=== PATIENT | female | born 1930 | race Caucasian/White ===

== ENCOUNTER 2016-10-07 13:48 | Observation (INO) | payer MEDICARE, BC ==
[2016-10-07] MEDS ORDERED: NITROGLYCERIN SL TABS 0.4 MG TAB SUBLINGUAL PRN (14:07)
[2016-10-07] MEDS ORDERED: ASPIRIN 81 MG CHEW PO STA (14:07)
[2016-10-07] MEDS ORDERED: HEPARIN SODIUM,PORCINE 5,000 UNIT/ML 1 ML VIAL IV PRN (14:07)
[2016-10-07] MEDS ORDERED: HEPARIN SODIUM,PORCINE/D5W PMX 25,000 UNIT in DEXTROSE/WATER 1 500ML.BAG IV SCH (14:15)
--- NOTE | 2016-10-07 14:40 | ED ---
General Adult HPI - General Chief complaint: Dizziness Stated complaint: cardiac changes Time Seen by Provider: 10/07/16 13:51 Source: patient, EMS, RN notes reviewed, old records reviewed Mode of arrival: EMS Limitations: no limitations - History of Present Illness Initial comments: This is an 86-year-old female ER for evaluation of chest pain. Patient has history of cardiac risk also has UTI. Patient's transfer patient except for [facility] for evaluation by cardiology. Patient still with mild chest pain at this time. Patient denies travel history, no shortness of breath no cough or congestion. - Related Data Home Medications Medication Instructions Recorded Confirmed Brinzolamide/Brimonidine Tart 1 drop BOTH EYES BID 10/07/16 10/07/16 [Simbrinza 1%-0.2% Eye Drops] Calcium Carbonate/Vitamin D3 1 tab PO DAILY@119910/07/16 10/07/16 [Calcium 600-Vit D3 200 Tablet] Digoxin [Lanoxin] 125 mcg PO DAILY 10/07/16 10/07/16 Hydrochlorothiazide [Hydrodiuril] 25 mg PO HS 10/07/16 10/07/16 Latanoprost [Xalatan 0.005%] 1 drop BOTH EYES HS 10/07/16 10/07/16 Levothyroxine Sodium [Synthroid] 25 mcg PO HS 10/07/16 10/07/16 Metoprolol Succinate [Toprol XL] 50 mg PO HS 10/07/16 10/07/16 Multivit-Min/FA/Lycopen/Lutein 1 tab PO DAILY@1200 10/07/16 10/07/16 [Centrum Silver Tablet] [place]-3 Fatty Acids/Fish Oil [Fish 1 cap PO DAILY@119910/07/16 10/07/16 Oil 1,000 mg Capsule] Rivaroxaban [Xarelto] 20 mg PO DAILY 10/07/16 10/07/16 Simvastatin [Simvastatin] 20 mg PO HS 10/07/16 10/07/16 Timolol 0.5% Ophth Soln [Timoptic 1 drop BOTH EYES BID 10/07/16 10/07/16 0.5% Ophth Soln] amLODIPine [Norvasc] 10 mg PO HS 10/07/16 10/07/16 carBAMazepine [carBAMazepine] 200 mg PO BID 10/07/16 10/07/16 Allergies Allergy/AdvReac Type Severity Reaction Status Date / Time No Known Allergies Allergy Verified 10/07/16 14:14 Review of Systems ROS Statement: Those systems with pertinent positive or pertinent negative responses have been documented in the HPI. ROS Other: All systems not noted in ROS Statement are negative. Past Medical History Past Medical History: Atrial Fibrillation, Hyperlipidemia, Hypertension Additional Past Medical History / Comment(s): trigeminal neuralgia History of Any Multi-Drug Resistant Organisms: None Reported Past Surgical History: Hysterectomy, Orthopedic Surgery Additional Past Surgical History / Comment(s): rib resection Past Psychological History: No Psychological Hx Reported Smoking Status: Never smoker Past Alcohol Use History: None Reported Past Drug Use History: None Reported General Exam Limitations: no limitations General appearance: alert, in no apparent distress Head exam: Present: atraumatic, normocephalic, normal inspection Eye exam: Present: normal appearance, PERRL, EOMI. Absent: scleral icterus, conjunctival injection, periorbital swelling ENT exam: Present: normal exam, mucous membranes moist Neck exam: Present: normal inspection. Absent: tenderness, meningismus, lymphadenopathy Respiratory exam: Present: normal lung sounds bilaterally. Absent: respiratory distress, wheezes, rales, rhonchi, stridor Cardiovascular Exam: Present: regular rate, normal rhythm, normal heart sounds. Absent: systolic murmur, diastolic murmur, rubs, gallop, clicks GI/Abdominal exam: Present: soft, normal bowel sounds. Absent: distended, tenderness, guarding, rebound, rigid Extremities exam: Present: normal inspection, full ROM, normal capillary refill. Absent: tenderness, pedal edema, joint swelling, calf tenderness Back exam: Present: normal inspection Neurological exam: Present: alert, oriented X3, CN II-XII intact Psychiatric exam: Present: normal affect, normal mood Skin exam: Present: warm, dry, intact, normal color. Absent: rash Course Vital Signs 10/07/16 13:53 Temperature 97.4 F L Pulse Rate 60 Respiratory 18 Rate Blood Pressure 159/73 O2 Sat by Pulse 99 Oximetry - Reevaluation(s) Reevaluation #1: 10/07/16 14:39 Patient this time is still with chest pain, transfer records are fully reviewed including troponin prior EKG EKG Findings - EKG Comments: EKG Findings:: EKG shows sinus rhythm rate of 61, pO2 42, QRS 100, QTC 436 Medical Decision Making - Medical Decision Making 6 female ER with A. fib high blood pressure high cholesterol, patient coming in a stretcher patient cardiac observation. EKG is negative, troponin was negative and patient be admitted, patient also noted to have urinary tract infection Critical Care Time Critical Care Time: Yes Total Critical Care Time: 31 Disposition Clinical Impression: Chest pain, UTI (urinary tract infection) Disposition: ADMITTED IP TO THIS HOSP Condition: Undetermined Referrals: Jeramy Alexandra MD [Primary Care Provider] - 1-2 days
[2016-10-07] MEDS: SODIUM CHLORIDE 0.9% 1,000 ML IV SCH (14:42)
[2016-10-07 17:35] LABS: Creatine Kinase MB 0.8 ng/mL (0.0-2.4); Troponin I 0.017 ng/mL (0.000-0.034)
[2016-10-07] MEDS ORDERED: amLODIPine 10 MG TAB PO SCH (21:00)
[2016-10-07] MEDS ORDERED: HYDROCHLOROTHIAZIDE 25 MG TAB PO SCH (21:00)
[2016-10-07] MEDS ORDERED: LEVOTHYROXINE 25 MCG TAB PO SCH (21:00)
[2016-10-07] MEDS: DORZOLAMIDE HCL 2% DROPS 10 ML BTL BOTH EYES SCH (22:07)
[2016-10-07] MEDS: LATANOPROST 0.005% OPHTH DROPS 2.5 ML BTL BOTH EYES SCH (22:08)
[2016-10-07] MEDS: BRIMONIDINE TARTRATE 0.2% DROPS 5 ML BTL BOTH EYES SCH (22:08)
[2016-10-07] MEDS: TIMOLOL 0.5% OPHTH DROPS 5 ML BTL BOTH EYES SCH (22:09)
[2016-10-07] MEDS: METOPROLOL SUCCINATE (ER) 50 MG TAB.ER.24H PO SCH (22:11)
[2016-10-07] MEDS: ATORVASTATIN 10 MG TAB PO SCH (22:11)
[2016-10-07] MEDS: carBAMazepine 200 MG TAB PO SCH (22:17)
[2016-10-07 23:33] LABS: Creatine Kinase MB 0.8 ng/mL (0.0-2.4); Troponin I 0.015 ng/mL (0.000-0.034)
[2016-10-08 03:24] LABS: Hemoglobin A1C 5.3 % (4.2-6.1)
[2016-10-08 07:09] LABS: Basophils % (A) 1 %; CH 32.6; CHCM 35.1; Eosinophils # (A) 0.1 k/uL (0-0.7); Eosinophils % (A) 4 %; HDW 2.49; HGB 13.4 gm/dL (11.4-16.0); Luc # (Auto) 0.11; Luc % (Auto) 3; Lymphocytes # (A) 0.8 k/uL (1.0-4.8); Lymphocytes % (A) 23 %; MCH 32.2 pg (25.0-35.0); MCHC 34.4 g/dL (31.0-37.0); MCV 93.4 fL (80.0-100.0); Mean Platelet Volume 6.7; Monocytes # (A) 0.3 k/uL (0-1.0); Monocytes % (A) 10 %; Neutrophils % (A) 59 %; RBC 4.18 m/uL (3.80-5.40); RDW 12.4 % (11.5-15.5); WBC 3.4 k/uL (3.8-10.6); WBC (Perox) 3.39
--- NOTE | 2016-10-08 07:25 | HP ---
DATE OF ADMISSION: CHIEF COMPLAINT: An 86-year-old female who was admitted with dizziness with a cardiac risk. She has a history of UTI. She transferred from ( ) for evaluation by good automotive project engineer due to chest pain, similar to atrial fibrillation and chest pain she has had 3 to 4 to 5 years ago. She denies any travel history. No shortness of breath, cough or congestion. D-dimer was ordered, which was negative. HOME MEDICATIONS: 1. Simbrinza. 2. Calcium carbonate. 3. Lanoxin. 4. HydroDIURIL. 5. Xalatan. 6. Synthroid. 7. Toprol XL. 8. Xarelto 20 mg a day. 9. Simvastatin 20 mg a day. 10. Amlodipine 10 mg daily. 11. Carbamazepine 200 mg b.i.d. ALLERGIES: Negative. REVIEW OF SYSTEMS: Fourteen-point review of systems negative except as mentioned in HPI. SOCIAL HISTORY: Lives by herself. She is an ex-nurse for 30 years. Does not smoke or drink alcohol or take illicit drugs. She has a history of atrial fibrillation, dyslipidemia, hypertension, trigeminal neuralgia. She has had a hysterectomy, orthopedic surgery, ribs resection. No smoking, alcohol or illicit drugs. Vital signs stable, afebrile. CARDIOVASCULAR: S1, S2. LUNGS: Clear. GI: Soft. HEMATOLOGIC: Negative Homans. VASCULAR: Normal dorsalis pedis, posterior tibial and radial pulse. OPHTHALMOLOGIC: Pupils equal, round and react to light and accommodation. NEUROLOGIC: Alert and oriented x3. PSYCHIATRIC: Fair mood and affect. NEUROLOGIC: Alert and oriented x3. Temperature 97.4, pulse is 60 to 65, respiratory rate 16 to 18, blood pressure 150s over 70s. O2 99% on room air. ASSESSMENT: 1. Chest pain. 2. Urinary tract infection. 3. Atrial fibrillation. 4. Hypertension. 5. Dyslipidemia. 6. Rule out myocardial infarction. Treat UTI with IV Rocephin. Please see further orders.
[2016-10-08 07:30] LABS: ALT 21 U/L (9-52); AST 20 U/L (14-36); Alkaline Phosphatase 77 U/L (38-126); Anion Gap 8 mmol/L; Blood Urea Nitrogen 9 mg/dL (7-17); Calcium 8.5 mg/dL (8.4-10.2); Carbon Dioxide 27 mmol/L (22-30); Chloride 103 mmol/L (98-107); Cholesterol 150 mg/dL (<200); Glucose 91 mg/dL (74-99); HDL Cholesterol 57 mg/dL (40-60); Non-African American GFR(MDRD) >60 (>60 ml/min/1.73 sqM); Potassium 4.1 mmol/L (3.5-5.1); Sodium 138 mmol/L (137-145); Total Bilirubin 0.6 mg/dL (0.2-1.3); Total Protein 6.2 g/dL (6.3-8.2); Triglycerides 127 mg/dL (<150)
[2016-10-08] MEDS ORDERED: RIVAROXABAN 10 MG TAB PO SCH (07:30)
[2016-10-08] MEDS ORDERED: ASPIRIN 325 MG TAB PO SCH (09:00)
[2016-10-08] MEDS ORDERED: ATORVASTATIN 80 MG TAB PO SCH (09:00)
[2016-10-08] MEDS ORDERED: REGADENOSON 0.4 MG/5 ML SYRINGE IV ONE (09:25)
[2016-10-08] MEDS ORDERED: AMINOPHYLLINE 500 MG/20 ML VIAL IV PRN (09:25)
[2016-10-08] MEDS ORDERED: ASPIRIN 81 MG CHEW PO SCH (09:40)
--- NOTE | 2016-10-08 11:26 | ECHOF ---
Referral Reason:afib MEASUREMENTS -------- HEIGHT: 170.2 cm WEIGHT: 67.6 kg BP: 128/74 RVIDd: 3.0 cm (< 3.3) IVSd: 1.0 cm (0.6 - 1.1) LVIDd: 3.9 cm (3.9 - 5.3) LVPWd: 1.1 cm (0.6 - 1.1) IVSs: 1.6 cm LVIDs: 2.4 cm LVPWs: 1.6 cm LA Diam: 3.2 cm (2.7 - 3.8) LAESV Index (A-L): 26.35 ml/m Ao Diam: 3.3 cm (2.0 - 3.7) AV Cusp: 2.6 cm (1.5 - 2.6) MV EXCURSION: 15.488 mm (> 18.000) MV EF SLOPE: 49 mm/s (70 - 150) EPSS: 0.5 cm MV E Julio: 0.98 m/s MV DecT: 194 ms MV A Julio: 0.67 m/s MV E/A Ratio: 1.46 RAP: 5.00 mmHg RVSP: 26.24 mmHg FINDINGS -------- Sinus rhythm. This was a technically good study. The left ventricular size is normal. Left ventricular wall thickness is normal. Overall left ventricular systolic function is normal with, an EF between 60 - 65 %. The diastolic filling pattern is normal for the age of the patient 19.55. The right ventricle is normal in size and function. Normal LA size by volume 22+/-6 ml/m2. The right atrium is normal in size. The aortic valve is trileaflet, and appears structurally normal. No aortic stenosis or regurgitation. Trace amount of aortic regurgitation. [id number] mitral regurgitation is present. Mild tricuspid regurgitation present. Right ventricular systolic pressure is normal at < 35 mmHg. The pulmonic valve was not well visualized. The aortic root size is normal. Normal inferior vena cava with normal inspiratory collapse consistent with estimated right atrial pressure of 5 mmHg. The pericardium is normal. CONCLUSIONS -------- 1. Sinus rhythm. 2. The aortic valve is trileaflet, and appears structurally normal. No aortic stenosis or regurgitation. 3. Trace amount of aortic regurgitation. 4. Yvkg-[id number] mitral regurgitation is present. 5. Mild tricuspid regurgitation present. 6. Right ventricular systolic pressure is normal at < 35 mmHg. 7. The pulmonic valve was not well visualized. 8. The aortic root size is normal. 9. Normal inferior vena cava with normal inspiratory collapse consistent with estimated right atrial pressure of 5 mmHg. 10. The pericardium is normal. 11. This was a technically good study. 12. The left ventricular size is normal. 13. Left ventricular wall thickness is normal. 14. Overall left ventricular systolic function is normal with, an EF between 60 - 65 %. 15. The diastolic filling pattern is normal for the age of the patient 19.55 16. The right ventricle is normal in size and function. 17. Normal LA size by volume 22+/-6 ml/m2. 18. The right atrium is normal in size. RATE MANAGER: Letha Teresa RDCS
--- NOTE | 2016-10-08 12:43 | EST ---
DATE OF SERVICE: 10/08/2016 AGE: 86Y SEX: F HT: 5'7" WT: 152 lbs. Protocol Isiah: Other: Lexiscan Cardiolite Stage: Dur. of Exercise: *Heart Rate Blood Pressure *Rest: 57 Rest: 170/58 * *Max. Achieved: 95 Maximum BP: 195/79 85% PMHR: 100% PMHR: *METS: INDICATIONS: Chest pain. MEDICATIONS: Patient was given Lexiscan injection over the period of 15 seconds. Peak heart rate of 95 was achieved. Maximum blood pressure of 195/79 mmHg was noted. Resting EKG shows normal sinus rhythm with normal DE interval and QRS duration and normal ST-T waves. No ST segment depression suggestive of ischemia is noted. The results of the nuclear study will follow.
[2016-10-08] MEDS: HYDROCHLOROTHIAZIDE 25 MG TAB PO SCH (14:04)
[2016-10-08] MEDS: LEVOTHYROXINE 25 MCG TAB PO SCH ×2 (14:04→14:08)
[2016-10-08] MEDS: amLODIPine 10 MG TAB PO SCH (14:04)
[2016-10-08] MEDS: carBAMazepine 200 MG TAB PO SCH ×2 (14:04→20:23)
[2016-10-08] MEDS: DIGOXIN 125 MCG TAB PO SCH (14:04)
[2016-10-08] MEDS: TIMOLOL 0.5% OPHTH DROPS 5 ML BTL BOTH EYES SCH ×2 (14:05→20:22)
[2016-10-08] MEDS: DORZOLAMIDE HCL 2% DROPS 10 ML BTL BOTH EYES SCH ×2 (14:06→20:24)
[2016-10-08] MEDS: SODIUM CHLORIDE 0.9% 1,000 ML IV SCH (14:07)
[2016-10-08] MEDS: BRIMONIDINE TARTRATE 0.2% DROPS 5 ML BTL BOTH EYES SCH ×2 (14:07→20:24)
--- NOTE | 2016-10-08 15:13 | CONS ---
DATE OF CONSULTATION: Mrs. Grant is an 86-year-old female who was transferred from [facility] for evaluation. Patient has been followed by Dr. Amato on a regular basis. History of paroxysmal atrial fibrillation diagnosed about 3 years ago who has been in sinus mechanism, anticoagulated and has done reasonably well from the cardiac standpoint. Has no history of obstructive coronary artery disease. Yesterday had frequency and has been waking up every hour on the hour to go to the bathroom. Went to the emergency room with feeling fatigued, tired and dyspneic. She has a baseline dyspnea, slightly worse and she was feeling mildly dizzy. In the emergency room, she had no chest discomfort. Her EKG shows sinus mechanism. There was transient T wave inversion laterally but not associated with any other symptoms. She has undergone stress test in the past that revealed no evidence of inducible ischemia. She had some palpitation 2 days ago, but no documented recurrent atrial fibrillation. She has no clear PND, orthopnea. No peripheral edema. She tries to walk on a daily basis using her cane, but she gets dyspneic. Her coronary risk factors are positive for hypertension and hyperlipidemia. She is nondiabetic, nonsmoker. Her medications include: Fish oil, vitamin, calcium, eyedrops Xalatan, Lanoxin 0.125 mg daily, Norvasc 10 mg daily, HydroDIURIL 20 mg daily, simvastatin 20 mg daily, carbamazepine, Xarelto 20 mg daily, Toprol-XL 50 mg daily and Synthroid 0.025 mg daily. REVIEW OF SYSTEMS: RESPIRATORY SYSTEM: She has no recent wheezing. No cough. She has chronic dyspnea. GI: No recent GI bleeding. No peptic ulcer disease. SYSTEM: She has frequency, but no hematuria. NERVOUS SYSTEM: No history of seizure. PHYSICAL EXAMINATION: An 86-year-old female, alert, oriented, in no apparent distress. Blood pressure 128/70 with a heart in the 50s. HEAD: Normocephalic. EYES: Sclerae anicteric. NECK: Good upstroke. No bruit. No jugular venous distention. LUNGS: Clear to auscultation. HEART: Regular rate and rhythm. S1, S2, no S3, with systolic murmur heard at the base. No diastolic murmur. No rub. ABDOMEN: Soft, nontender, positive bowel sounds. No organomegaly. EXTREMITIES: No edema. Intact distal pulses. LAB DATA: EKG sinus mechanism, first-degree AV block with nonspecific ST-T wave changes. On the EKG [place] there was transient T wave inversion in the lateral precordial leads. Troponin 0.017 and 0.015. BUN and creatinine 9 and 0.63. Hemoglobin 13.4. IMPRESSION: 1. Transient EKG changes of unclear etiology not associated with any symptoms and with normal troponins. 2. Paroxysmal atrial fibrillation, remains in sinus mechanism. 3. History of hypertension. 4. Hyperlipidemia. 5. Probable urinary tract infection. RECOMMENDATIONS: From the cardiac standpoint, I will hold her Xarelto at this time. I will proceed with an echocardiogram and a myocardial perfusion imaging. If there is no evidence of inducible ischemia, then no further cardiac work-up will be needed. I will restart the patient on Xarelto at 15 mg a day and stop her aspirin at that time. On the other hand if there is abnormal myocardial perfusion imaging then she would require coronary angiography. I have discussed those findings and recommendations with the patient and she in full understanding and agreement. Thank you for this consult. We will follow with you.
--- NOTE | 2016-10-08 16:05 | NM ---
EXAMINATION TYPE: NM stress Lexiscan cardiolite DATE OF EXAM: 10/08/2016 COMPARISON: NONE HISTORY: Chest pain TECHNIQUE: After the intravenous administration of 11.0 mCi Tc 99m Sestamibi - Cardiolite resting SP ECT images acquired 45 minutes post injection. The patient received 0.4mg Lexiscan, 27.5 mCi Tc 99m Sestamibi - Stress images obtained [address] injection FINDINGS: There is good uptake of radiopharmaceutical by the left ventricle without fixed defect. The re is no convincing inducible ischemic change. Wall motion is normal and ejection fraction is 62%. IMPRESSION: NORMAL NUCLEAR MEDICINE STRESS MYOCARDIAL SPECT.
[2016-10-08] MEDS: LATANOPROST 0.005% OPHTH DROPS 2.5 ML BTL BOTH EYES SCH (20:23)
[2016-10-08] MEDS: ATORVASTATIN 10 MG TAB PO SCH (20:23)
[2016-10-08] MEDS: METOPROLOL SUCCINATE (ER) 50 MG TAB.ER.24H PO SCH (20:24)
[2016-10-09 07:20] LABS: Mean Platelet Volume 6.6
[2016-10-09 08:07] VITALS: RESP 14
[2016-10-09] MEDS: SODIUM CHLORIDE 0.9% 1,000 ML IV SCH (08:47)
[2016-10-09] MEDS: DIGOXIN 125 MCG TAB PO SCH (09:06)
[2016-10-09] MEDS: HYDROCHLOROTHIAZIDE 25 MG TAB PO SCH (09:06)
[2016-10-09] MEDS: LEVOTHYROXINE 25 MCG TAB PO SCH (09:06)
[2016-10-09] MEDS: amLODIPine 10 MG TAB PO SCH (09:07)
[2016-10-09] MEDS: carBAMazepine 200 MG TAB PO SCH (09:07)
[2016-10-09] MEDS: TIMOLOL 0.5% OPHTH DROPS 5 ML BTL BOTH EYES SCH (09:11)
[2016-10-09] MEDS: DORZOLAMIDE HCL 2% DROPS 10 ML BTL BOTH EYES SCH (09:12)
[2016-10-09] MEDS: BRIMONIDINE TARTRATE 0.2% DROPS 5 ML BTL BOTH EYES SCH (09:12)
--- NOTE | 2016-10-09 10:49 | P.DS ---
Providers Date of admission: 10/07/16 14:07 Expected date of discharge: 10/09/16 Attending physician: Ismael Varma Consults: 10/07/16 14:07 Consult Physician Urgent Consulting Provider: Michelle Rg Consult Reason/Comments: cp Do you want consulting provider notified?: Yes Primary care physician: [facility] Course: [id number] female who was transferred from [facility] for chest pain. He is primary beverage manager Dr. Lee which she sees on a regular basis. Patient has a history of paroxysmal atrial fibrillation diagnosed about 3 years ago. Has maintained sinus rhythm. Has been on anticoagulation Xarelto and had been doing fairly well up until the current event. Patient went into the emergency room stated that she felt tired fatigued and short of breath. Patient does have baseline shortness of breath but she felt that this was different. The 12-lead EKG showed sinus rhythm. There were transient T-wave inversions noted laterally. Patient had undergone a stress test in the past that showed no evidence of inducible ischemia. Patient had some heart palpitations a couple days ago. Given the above clinical presentation cardiology recommended the patient undergo a Lexiscan stress test the Lexiscan stress test was negative no acute findings. Additionally patient stated that when she was seen in [facility] they did collect a urine and she was told she had a urinary tract infection started on antibiotic Rocephin has received a couple doses. Patient denies any burning on urination frequency urgency. Patient remained pain-free and from cardiology perspective the patient to be discharged home echocardiogram obtained on October 08 showed an EF between 60 and 65% Impression discharge diagnosis Present on admission chest pain atypical features no evidence of acute coronary syndrome Paroxysmal atrial fibrillation current maintain sinus rhythm hypertension with hypertensive heart disease Echocardiogram October 08 EF 60-65% normal findings Lexiscan done October 08 negative study Present on admission urinary tract infection not ruled out Present on admission transit EKG changes of unclear etiology not associated with any symptoms and with normal troponins The above dictated assessment and findings were discussed with dr Avani Hernandez and the plan of care have been dictated as directed. Cecilia Knight nurse practitioner acting as a scribe for Dr. Varma Patient Condition at Discharge: Undetermined Plan - Discharge Summary New Discharge Prescriptions: New Levofloxacin [Levaquin] 500 mg PO DAILY #5 tab Continue [place]-3 Fatty Acids/Fish Oil [Fish Oil 1,000 mg Capsule] 1 cap PO DAILY@1200 Multivit-Min/FA/Lycopen/Lutein [Centrum Silver Tablet] 1 tab PO DAILY@1200 Timolol 0.5% Ophth Soln [Timoptic 0.5% Ophth Soln] 1 drop BOTH EYES BID Latanoprost [Xalatan 0.005%] 1 drop BOTH EYES HS Digoxin [Lanoxin] 125 mcg PO DAILY Brinzolamide/Brimonidine Tart [Simbrinza 1%-0.2% Eye Drops] 1 drop BOTH EYES BID amLODIPine [Norvasc] 10 mg PO HS Hydrochlorothiazide [Hydrodiuril] 25 mg PO HS carBAMazepine 200 mg PO BID Simvastatin 20 mg PO HS Rivaroxaban [Xarelto] 20 mg PO DAILY Metoprolol Succinate [Toprol XL] 50 mg PO HS Levothyroxine Sodium [Synthroid] 25 mcg PO HS Calcium Carbonate/Vitamin D3 [Calcium 600-Vit D3 200 Tablet] 1 tab PO DAILY@ 1200 Discharge Medication List Brinzolamide/Brimonidine Tart [Simbrinza 1%-0.2% Eye Drops] 1 drop BOTH EYES BID 10/07/16 [History] Calcium Carbonate/Vitamin D3 [Calcium 600-Vit D3 200 Tablet] 1 tab PO DAILY@ 1200 10/07/16 [History] Digoxin [Lanoxin] 125 mcg PO DAILY 10/07/16 [History] Hydrochlorothiazide [Hydrodiuril] 25 mg PO HS 10/07/16 [History] Latanoprost [Xalatan 0.005%] 1 drop BOTH EYES HS 10/07/16 [History] Levothyroxine Sodium [Synthroid] 25 mcg PO HS 10/07/16 [History] Metoprolol Succinate [Toprol XL] 50 mg PO HS 10/07/16 [History] Multivit-Min/FA/Lycopen/Lutein [Centrum Silver Tablet] 1 tab PO DAILY@1200 10/07 [History] [place]-3 Fatty Acids/Fish Oil [Fish Oil 1,000 mg Capsule] 1 cap PO DAILY@1200 [History] Rivaroxaban [Xarelto] 20 mg PO DAILY 10/07/16 [History] Simvastatin 20 mg PO HS 10/07/16 [History] Timolol 0.5% Ophth Soln [Timoptic 0.5% Ophth Soln] 1 drop BOTH EYES BID [History] amLODIPine [Norvasc] 10 mg PO HS 10/07/16 [History] carBAMazepine 200 mg PO BID 10/07/16 [History] Levofloxacin [Levaquin] 500 mg PO DAILY #5 tab 10/09/16 [Rx] Follow up Appointment(s)/Referral(s): Jeramy Alexandra MD [Primary Care Provider] - 1-2 days Rodríguez Amato MD [STAFF PHYSICIAN] - 2 Weeks (Appointment made for FridayOctober 18 at 3:00pm at the [facility].) Discharge Disposition: HOME SELF-CARE
[2016-10-09 12:17] VITALS: BP 129/69; PULSE 64; TEMP 97.2
--- NOTE | 2016-10-09 12:59 | PN ---
Mrs. Grant is an 86-year-old female who presented with symptoms of urinary tract infection. She had transient T wave inversion on the lateral leads. She is feeling well this morning. She denies any chest pain. Her breathing has been stable. She denies any dizziness or palpitation. She denies any nausea. She continues to be on amlodipine 10 mg daily, Lipitor 10 mg daily, digoxin 0.125 mg daily, hydrochlorothiazide 25 mg daily, metoprolol succinate 50 mg daily and aspirin. PHYSICAL EXAMINATION: Blood pressure 131/60 with a heart rate in the 60s. LUNGS: Clear. HEART: Regular rate rhythm. S1, S2, no S3, with systolic murmur at the base. No diastolic murmur. No rub. ABDOMEN: Soft, nontender. EXTREMITIES: No edema. Lab data revealed cholesterol of 150 with an LDL of 68. Hemoglobin is 13.4. She underwent a myocardial perfusion imaging that revealed no evidence of inducible ischemia and her left ventricular systolic function by echocardiography was normal. IMPRESSION: 1. Abnormal EKG with no evidence of inducible ischemia. 2. Paroxysmal atrial fibrillation. 3. History of hypertension. 4. Hyperlipidemia. RECOMMENDATION: I will stop her aspirin. I will start her back on Xarelto at the lower dose of 15 mg daily. She should be able to be discharged home today and followed as an outpatient.
[2016-10-09] MEDS ORDERED: RIVAROXABAN 15 MG TAB PO SCH (17:30)
== END 2016-10-09 13:10 | disposition home or self-care (01) ==
LOC: EDBD → EC 13:48 → 3OBS 14:07
PROVIDERS: ADMIT Family Medicine; ATTEND Family Medicine
DX: R07.89 Other chest pain (principal); N39.0 Urinary tract infection, site not specified; E78.5 Hyperlipidemia, unspecified; I48.0 Paroxysmal atrial fibrillation; I11.9 Hypertensive heart disease without heart failure; Z79.899 Other long term (current) drug therapy; Z79.01 Long term (current) use of anticoagulants; R94.31 Abnormal electrocardiogram [ECG] [EKG]
CPT/HCPCS: 96361 ×4; 96365; 99291; 93005; 93017; 93306; 85379; 80061; 80053; 84443; 83036; 82550; 82553; 80162; 84484; 85025; 85049; 85730; 87086; 78452; G0378 ×3; A9500; J0696; J2785